=== PATIENT | male | born 1990 | race Caucasian/White ===

== ENCOUNTER 2019-05-13 13:02 | Emergency (ER) | payer SELFPAY ==
[~2019-05-13] VITALS: Ht 165.1 cm; Wt 60.0 kg
[2019-05-13 13:59] VITALS: BP 117/67
[2019-05-13] MEDS ORDERED: ACETAMINOPHEN WITH CODEINE 300/30MG TABLET PO ONE (14:00)
[2019-05-13] MEDS ORDERED: ONDANSETRON 4MG ODT PO ONE (14:30)
[2019-05-13] MEDS ORDERED: BACITRACIN ZINC OINT UDPKT TOP ONE (14:30)
[2019-05-13] MEDS ORDERED: MORPHINE SULFATE 10 MG/ML CPJ IM ONE (14:30)
[2019-05-13] MEDS ORDERED: TETANUS, DIPHTHERIA, PERTUSSIS VAC/PF 0.5ML (>7YR OLD) IM ONE (14:30)
[2019-05-13] MEDS ORDERED: LIDOCAINE HCL 2% 5ML SYRINGE IV ONE (14:30)
[2019-05-13] MEDS ORDERED: BACITRACIN 15GM TUBE TOP NR (14:36)
[2019-05-13] MEDS ORDERED: ONDANSETRON 4MG ODT ONE (14:46)
== END 2019-05-13 16:34 | disposition home or self-care (01) ==
LOC: ER 14:46
DX: S61.215A Laceration without foreign body of left ring finger without damage to nail, initial encounter (principal); X58.XXXA Exposure to other specified factors, initial encounter; Y93.89 Activity, other specified; Y92.89 Other specified places as the place of occurrence of the external cause; Y99.8 Other external cause status
CPT/HCPCS: 12001; 73130; 90471; 90715; 96372; 99284; J2270; J3490; Q0162

== ENCOUNTER 2022-10-19 12:05 | Emergency (ER) | payer MEDICAID ==
[~2022-10-19] VITALS: Ht 167.6 cm; Wt 73.0 kg
[2022-10-19 17:48] VITALS: BP 116/72
== END 2022-10-19 18:42 | disposition home or self-care (01) ==
LOC: ER 12:05
DX: L72.3 Sebaceous cyst (principal)
CPT/HCPCS: 99281